=== PATIENT | female | born 1990 | race Hispanic/Latino ===

== ENCOUNTER 2018-08-31 07:48 | Inpatient (IN) | payer OTHER ==
--- OUTSIDE RECORDS SUMMARY | 2018-09-02 07:43 | XMS REPORT ---
:1990 Author Organization eClinicalWorks Care Team Providers Name Role Phone Clinton Tavarez Provider Role Unavailable Allergies No Known Allergies Problems Problem Type Condition Code Onset Dates Condition Status Problem Obesity affecting in O99.212 Active second trimester Problem Encounter for supervision of Z34.91 Active low-risk in first trimester Problem Amenorrhea N91.2 Active Problem Encounter to determine O36.80X0 Active viability of , single or unspecified fetus Medications Medication Code Code Instructions Start End Date Status Dosage System Date Vitafol FE+ [facility] [id number] 90-1-200 & 50 MG March 17, Active as directed Orally 2017 Results No Known Results Summary Purpose [employer] Submission
--- OUTSIDE RECORDS SUMMARY | 2018-09-02 07:43 | XMS REPORT ---
[...] Start End Date Status Dosage System Date Prenate [facility] [id number] 18-0.6-0.4-350 April 10, Active 1 capsule MG Orally Once a 2017 Results No Known Results Summary Purpose eClinicalWorks Submission
--- OUTSIDE RECORDS SUMMARY | 2018-09-02 07:43 | XMS REPORT ---
[...] Medications Medication Code Code Instructions Start End Status Dosage System Date Date CitraNatal 90 [place] [id number] 90-1 & 300 MG March 24, Active as directed DHA Orally 2017 Results No Known Results Summary Purpose eClinicalWorks Submission
--- OUTSIDE RECORDS SUMMARY | 2018-09-02 07:43 | XMS REPORT ---
[...] of , single or unspecified fetus Medications No Known Medications Results No Known Results Summary Purpose eClinicalWorks Submission
--- OUTSIDE RECORDS SUMMARY | 2018-09-02 07:43 | XMS REPORT ---
:1990 Author Organization eClinicalWorks Care Team Providers Name Role Phone Clinton Tavarez Provider Role Unavailable Allergies, Adverse Reactions, Alerts Substance Reaction Event Type Sulfamethoxazole Info Not Available Drug Allergy Problems Problem Type Condition Code Onset Dates Condition Status Problem Obesity affecting in O99.212 Active second trimester Problem Encounter for supervision of Z34.91 Active low-risk in first trimester Problem Amenorrhea N91.2 Active Assessment Obesity affecting in O99.212 Active second trimester Assessment Encounter for supervision of Z34.91 Active low-risk in first trimester Problem Encounter to determine O36.80X0 Active viability of , single or unspecified fetus Medications Medication Code Code Instructions Start End Status Dosage System Date Date Vitafol FE+ [facility] [id number] 90-1-200 & 50 MG March 17, Active as directed Orally 2017 CitraNatal 90 [place] 44559106147 90-1 & 300 MG March 24, Active as directed DHA Orally 2017 Results No Known Results Summary Purpose eClinicalWorks Submission
--- OUTSIDE RECORDS SUMMARY | 2018-09-02 07:44 | XMS REPORT ---
:1990 Author Organization eClinicalWorks Care Team Providers Name Role Phone Clinton Tavarez Provider Role Unavailable Allergies, Adverse Reactions, Alerts Substance Reaction Event Type Sulfamethoxazole Info Not Available Drug Allergy Problems Problem Type Condition Code Onset Dates Condition Status Problem Encounter to determine O36.80X0 Active viability of , single or unspecified fetus Problem Obesity affecting in O99.212 Active second trimester Problem Patient's noncompliance with other Z91.19 Active medical treatment and regimen Problem Anemia affecting in O99.013 Active third trimester Problem Supervision of other high risk O09.893 Active pregnancies, third trimester Problem Amenorrhea N91.2 Active Problem Encounter for supervision of Z34.91 Active low-risk in first trimester Problem Uterine size-date discrepancy in O26.843 Active third trimester Problem 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 Assessment Uterine size-date discrepancy in O26.843 Active third trimester Assessment Patient's noncompliance with other Z91.19 Active medical treatment and regimen Assessment Anemia affecting in O99.013 Active third trimester Assessment Supervision of other high risk O09.893 Active pregnancies, third trimester Medications Medication Code Code Instructions Start End Status Dosage System Date Date Prenate Mini [facility] [id number] 18-0.6-0.4-350 April 10, Active 1 capsule MG Orally Once a 2017 day CitraNatal 90 [facility] 92703997679 90-1 & 300 MG March 24, Active as directed DHA Orally 2017 NataChew [facility] 06500642786 28-1 MG Orally May 14, Active 1 tablet Once a day 2017 Ferralet 90 [facility] 34440677540 90-1 MG Orally May 14, Active 1 tablet Once a day 2018 Vitafol FE+ [facility] 60926774035 90-1-200 & 50 MG March 17, Active as directed Orally 2017 Results No Known Results Summary Purpose eClinicalWorks Submission
--- OUTSIDE RECORDS SUMMARY | 2018-09-02 07:44 | XMS REPORT ---
[...] Active history of infertility in third trimester Medications No Known Medications Results No Known Results Summary Purpose [employer] Submission
--- OUTSIDE RECORDS SUMMARY | 2018-09-02 07:44 | XMS REPORT ---
:1990 Author Organization eClinicalWorks Care Team Providers Name Role Phone Clinton Tavarez Provider Role Unavailable Allergies, Adverse Reactions, Alerts Substance Reaction Event Type Sulfamethoxazole Info Not Available Drug Allergy Problems Problem Type Condition Code Onset Dates Condition Status Assessment Encounter to determine O36.80X0 Active viability of , single or unspecified fetus Assessment Obesity affecting in O99.212 Active second trimester Problem Obesity affecting in O99.212 Active second trimester Problem Encounter for supervision of Z34.91 Active low-risk in first trimester Problem Amenorrhea N91.2 Active Assessment Amenorrhea N91.2 Active Assessment Encounter for supervision of Z34.91 Active low-risk in first trimester Problem Encounter to determine O36.80X0 Active viability of , single or unspecified fetus Medications No Known Medications Results Name Result Date Reference Range Unit Abnormality Flag OB Complete Summary Purpose eClinicalWorks Submission
--- OUTSIDE RECORDS SUMMARY | 2018-09-02 07:44 | XMS REPORT ---
[...] Medications Results No Known Results Summary Purpose [employer] Submission
--- OUTSIDE RECORDS SUMMARY | 2018-09-02 07:44 | XMS REPORT ---
[...] of Z34.91 Active low-risk in first trimester Assessment Obesity affecting in O99.212 Active second [...] history of infertility in third trimester Medications Medication Code Code Instructions Start End Status Dosage System Date Date CitraNatal 90 [facility] [id number] 90-1 & 300 MG March 24, Active as directed DHA Orally 2017 NataChew [facility] [id number] 28-1 MG Orally May 14, Active 1 tablet Once a day 2017 Ferralet 90 [facility] [id number] 90-1 MG Orally May 14, Active 1 tablet Once a day 2018 Prenate Mini [facility] [id number] 18-0.6-0.4-350 April 10, Active 1 capsule MG Orally Once a 2018 day Vitafol FE+ [facility] 65719255721 90-1-200 & 50 MG March 17, Active as directed Orally 2017 Results No Known Results Summary Purpose eClinicalWorks Submission
--- OUTSIDE RECORDS SUMMARY | 2018-09-02 07:44 | XMS REPORT ---
:1990 Author Organization eClinicalWorks Care Team Providers Name Role Phone Pj Tavarezswinder Provider Role Unavailable Allergies No Known Allergies [...] Start End Status Dosage System Date Date NataChew [facility] [id number] 28-1 MG Orally May 14, Active 1 tablet Once a day 2017 Ferralet 90 [facility] 25685893301 90-1 MG Orally May 14, Active 1 tablet Once a day 2017 Prenate Mini [facility] 09274457929 18-0.6-0.4-350 April 10, Active 1 capsule MG Orally Once a 2018 day CitraNatal 90 [facility] 08458856076 90-1 & 300 MG March 24, Active as directed DHA Orally 2017 Vitafol FE+ [facility] 27616789237 90-1-200 & 50 MG March 17, Active as directed Orally 2017 Results No Known Results Summary Purpose eClinicalWorks Submission
--- OUTSIDE RECORDS SUMMARY | 2018-09-02 07:44 | XMS REPORT ---
[...] Medications Results No Known Results Summary Purpose [employer] Submission
[2018-09-02] MEDS ORDERED: BUTORPHANOL 1 MG/ML INJ IV PRN (08:13)
[2018-09-02] MEDS ORDERED: CARBOPROST TROME 250 MCG/ML IM PRN (08:13)
[2018-09-02] MEDS ORDERED: Ringers Lactate 1,000 ML IV PRN (08:13)
[2018-09-02] MEDS ORDERED: METHYLERGONOVINE 0.2MG/ML AMP IM PRN (08:13)
[2018-09-02] MEDS ORDERED: PROMETHAZINE 25 MG/ML VIAL IV PRN (08:13)
[2018-09-02 08:36] LABS: RPR Titer ND
[2018-09-02 08:45] VITALS: BMI 40.9
[2018-09-02] MEDS ORDERED: ROPIVACAINE HCL 2 MG/ML 100ML IV ONE (08:53)
[2018-09-02 08:54] LABS: Absolute Lymphocytes (CBC) 2.5 K/uL (0.7-4.9); Absolute Monocytes 0.6 K/uL (0.1-1.3); Basophils % 0.3 % (0-1.3); Eosinophils % 1.2 % (0-4.4); Hematocrit 29.9 % (36.0-45.0); Lymphocytes % 34.4 % (15.3-44.8); MCH 29.1 pg (27.0-35.0); MCV 86.8 fL (80-100); MPV 9.6 fL (7.6-11.3); Monocytes % 8.2 % (3.3-12.3); RBC Red Blood Cell Count 3.45 M/uL (3.86-4.86)
[2018-09-02] MEDS ORDERED: ROPIVACAINE HCL 0.2% 20ML AMP IV ONE (08:56)
[2018-09-02] MEDS ORDERED: ROPIVACAINE HCL 100 ML IV PRN (08:57)
[2018-09-02] MEDS ORDERED: FENTANYL CITR 100 MCG/2 ML IV ONE (08:58)
[2018-09-02] MEDS ORDERED: OXYTOCIN/LR 20 UNIT/1,000 ML BAG IV SCH (09:00)
[2018-09-02] MEDS ORDERED: Ringers Lactate 1,000 ML IV SCH (09:00)
[2018-09-02 09:02] LABS: Urine Appearance CLEAR; Urine Bilirubin NEGATIVE (NEG); Urine Blood NEGATIVE (NEG); Urine Color YELLOW; Urine Glucose NEGATIVE (NEG); Urine Protein NEGATIVE (NEG); Urine Urobilinogen 0.2 mg/dL (0.2-1.0)
[2018-09-02 09:06] LABS: Urine Microscopic Reflex NO UMIC
[2018-09-02] MEDS ORDERED: LIDOCAINE 2% INJ, 20 mL 0 ML ONE (10:33)
[2018-09-02] MEDS ORDERED: BISACODYL 10 MG RECTAL SUPP RECT PRN (10:51)
[2018-09-02] MEDS ORDERED: Oxycodone HCl/Acetaminophen 1 TAB TAB PO PRN ×2 (10:51)
[2018-09-02] MEDS ORDERED: ACETAMINOPHEN 500 MG TAB PO PRN (10:51)
[2018-09-02] MEDS ORDERED: ONDANSETRON 4 MG (ODT) TAB PO PRN (10:51)
[2018-09-02] MEDS ORDERED: DOCUSATE NA/SENNA CONC 1 TAB PO PRN (10:51)
[2018-09-02] MEDS ORDERED: KETOROLAC 30 MG/ML INJ IV PRN (10:52)
--- NOTE | 2018-09-02 10:55 | P.OP ---
Date of Service: 09/02/18 Findings and Operative Technique Patient delivered a viable male infant in cephalic presentation on 09/02/18 at 10:42 AM. Infant was delivered and once delivered nose and mouth were suctioned with a suction bulb and cord was clamped and cut. was then placed on mother's abdomen for skin to skin bonding. Attention was then turned to the placenta which was delivered with gentle traction at 10:44 and noted to be intact. Perineum was noted to be intact. EBL was 200 cc. APGARS were 8 and 9. Weight was found to be 9 lbs 4 ounces. First stage of labor was 1 hour and 48 minutes. Second stage was 22 minutes. Both mom and baby are doing well and she is beginning to breast feed.
[2018-09-02] MEDS: IBUPROFEN 200 MG TAB PO PRN ×2 (13:22→23:26)
[2018-09-03] MEDS ORDERED: Ringers Lactate 1,000 ML IV ONE (06:16)
[2018-09-03 06:29] LABS: Absolute Lymphocytes (CBC) 3.3 K/uL (0.7-4.9); Absolute Monocytes 0.7 K/uL (0.1-1.3); Absolute Neutrophil 4.6 K/uL (1.8-8.0); Basophils % 0.4 % (0-1.3); Eosinophils % 1.1 % (0-4.4); Hematocrit 24.6 % (36.0-45.0); Lymphocytes % 37.7 % (15.3-44.8); MCH 30.1 pg (27.0-35.0); MPV 9.2 fL (7.6-11.3); Monocytes % 8.6 % (3.3-12.3); RBC Red Blood Cell Count 2.83 M/uL (3.86-4.86)
[2018-09-03] MEDS: IBUPROFEN 200 MG TAB PO PRN ×2 (08:03→14:03)
[2018-09-03 12:17] VITALS: BP 103/62; TEMP 98.8
[2018-09-03] MEDS ORDERED: MEASLES,MUMPS,RUBELLA VAC 0.5ML SQVAC ONE (12:38)
[2018-09-03] MEDS ORDERED: FERROUS SULFATE 325 MG TAB PO SCH (21:00)
[2018-09-03 21:54] LABS: RPR (Rapid Plasma Reagin) NON-REACT (NON-REACT)
[2018-09-04] MEDS ORDERED: PRENATAL VITAMIN PO SCH (09:00)
[2018-09-04 21:14] LABS: HBsAG Nonreactive (Nonreactive)
== END 2018-09-03 14:35 | disposition home or self-care (01) | DRG 806 ==
LOC: 2ND-WC 09-02 07:41
PROVIDERS: ADMIT Student in an Organized Health Care Education/Training Program; ATTEND Student in an Organized Health Care Education/Training Program
PROC: 10E0XZZ Delivery of Products of Conception, External Approach (ICD-10-PCS; principal; 2018-09-02)
PROC: 3E033VJ Introduction of Other Hormone into Peripheral Vein, Percutaneous Approach (ICD-10-PCS; 2018-09-02)
PROC: 10907ZC Drainage of Amniotic Fluid, Therapeutic from Products of Conception, Via Natural or Artificial Opening (ICD-10-PCS; 2018-09-02)
DX: O99.214 Obesity complicating childbirth (principal); Z68.41 Body mass index [BMI] 40.0-44.9, adult; Z37.0 Single live birth; E66.9 Obesity, unspecified; Z3A.40 40 weeks gestation of pregnancy; Z91.11 Patient's noncompliance with dietary regimen; O99.013 Anemia complicating pregnancy, third trimester; D64.9 Anemia, unspecified; O26.843 Uterine size-date discrepancy, third trimester
CPT/HCPCS: 36415; 81003; 85025; 86592; 86901; 87340; 90707; J2210; J2590; J2795; J3010